=== PATIENT | male | born 1965 | race Caucasian/White ===

== ENCOUNTER 2017-09-05 21:12 | Emergency (ER) | payer BC ==
[2017-09-05] MEDS ORDERED: TDAP ADULT 0.5 ML INJ (BOOSTRIX) IM ONE (21:35)
[2017-09-05] MEDS ORDERED: LET GEL TOPICAL 1 EA SYR TP ONE (21:35)
[2017-09-05] MEDS ORDERED: HYDROGEN PEROXIDE 236 ML BOTTLE TP ONE (22:06)
[2017-09-05] MEDS ORDERED: PENICILLIN VK 500 MG TAB PO ONE (22:11)
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
[2017-09-05 23:11] VITALS: BP 131/78
== END 2017-09-05 23:05 | disposition home or self-care (01) ==
LOC: CED 21:12
PROC: 0CQ0XZZ Repair Upper Lip, External Approach (ICD-10-PCS; principal; 2017-09-05)
DX: S01.511A Laceration without foreign body of lip, initial encounter (principal); S02.5XXA Fracture of tooth (traumatic), initial encounter for closed fracture; Z23 Encounter for immunization; V18.2XXA Unspecified pedal cyclist injured in noncollision transport accident in nontraffic accident, initial encounter; Y93.55 Activity, bike riding; Y92.9 Unspecified place or not applicable; Y99.9 Unspecified external cause status